=== PATIENT | male | born 2000 | race Caucasian/White ===

== ENCOUNTER 2019-04-25 05:03 | Emergency (ER) | payer MEDICAID ==
[~2019-04-25] VITALS: Ht 177.8 cm; Wt 61.2 kg
[2019-04-25 06:21] LABS: Basophils # (auto) 0 uL; Basophils % (auto) 1.2 % (0.0-2.0); Eosinophils # (auto) 0.1 uL; Eosinophils % (auto) 3.3 % (0.0-7.0); Hematocrit 49.5 % (41.0-53.0); Hemoglobin 16.8 g/dL (13.5-17.5); Lymphocytes # (auto) 1.6 uL; Lymphocytes % (auto) 42.3 % (10.0-50.0); Mean Corpuscular Hemoglobin 30.4 pg (28.0-32.0); Mean Corpuscular Volume 89.4 fL (80.0-100.0); Monocytes # (auto) 0.4 uL; Neutrophils # (auto) 1.6 uL; Neutrophils % (auto) 42.2 % (37.0-80.0); Nucleated Red Blood Cells % 0.1 %; Platelet Count (auto) 193 10^3/uL (140-450); Red Blood Cells 5.54 10^6/uL (4.5-5.90); Red Cell Distribution Width 13.3 % (11.8-14.3); White Blood Cell 3.8 10^3/uL (4.4-10.8)
[2019-04-25 06:42] LABS: Albumin 4.5 g/dL (3.4-5.0); Anion Gap 7 (5-15); Blood Urea Nitrogen 11 mg/dL (7-18); Calcium 8.7 mg/dL (8.5-10.1); Carbon Dioxide 26 mmol/L (21-32); Chloride 107 mmol/L (98-107); Glucose 95 mg/dL (74-106); Potassium 3.9 mmol/L (3.5-5.1); Sodium 140 mmol/L (136-145)
[2019-04-25 06:45] LABS: Alanine Aminotransferase 59 U/L (16-61); BUN/Creatinine Ratio 11.7; GFR African American 130 mL/min; GFR Non-African American 108 mL/min
[2019-04-25 06:50] LABS: Alkaline Phosphatase 100 U/L (45-117); Aspartate Aminotransferase 18 U/L (15-37); Bilirubin, Total 1.4 mg/dL (0.2-1.0); Total Protein 7.7 g/dL (6.4-8.2)
[2019-04-25 07:43] VITALS: BP 120/62
== END 2019-04-25 08:01 | disposition home or self-care (01) ==
LOC: ER 05:03
DX: R07.89 Other chest pain (principal); F12.10 Cannabis abuse, uncomplicated
CPT/HCPCS: 36415; 71046; 80053; 84484; 85025; 85379; 93005; 94761; 99284; J7030

== ENCOUNTER 2024-07-29 18:16 | Emergency (ER) | payer SELFPAY ==
[~2024-07-29] VITALS: Ht 177.8 cm; Wt 81.1 kg
--- NOTE | 2024-07-29 19:41 | DVH ---
Exam: Right shoulder radiograph INDICATION: RIGHT SHOULDER PAIN Technique: 3 views were obtained of the right shoulder. COMPARISON: None FINDINGS: Normal mineralization and alignment. Joint spaces are preserved. No acute fracture. Visualized right lung is clear. Overlying soft tissues are intact IMPRESSION: No acute fracture or dislocation of the right shoulder.
[2024-07-29] MEDS ORDERED: IBUP-1456 PO (21:51)
--- NOTE | 2024-07-29 21:51 | ED.PDOC ---
Musculoskeletal HPI Comments 24-YEAR-OLD MALE PRESENTS TO ER WITH COMPLAINTS OF RIGHT SHOULDER PAIN X1 DAY. PATIENT REPORTS HE STARTED EXPERIENCING RIGHT SHOULDER PAIN AT 4:30 P.M. TODAY WHILE HE WAS WRESTLING WITH HIS BROTHER. DENIES ANY TRAUMA/FALLS. HE RATES HIS CURRENT PAIN A 10/10 TO RIGHT SHOULDER WITHOUT RADIATION. DENIES USE OF MEDICATIONS FOR CURRENT SYMPTOMS. DENIES HEAD INJURY/LOC, NECK PAIN, NUMBNESS/TINGLING, SHORTNESS OF BREATH, CHEST PAIN OR ANY FURTHER SYMPTOMS/COMPLAINTS Chief Complaint: Upper Extremity Time Seen by MD: 18:19 Primary Care Provider: GABBYIES Reviewed Notes: Nurses Notes, Medications, Allergies Allergies: Coded Allergies: NO KNOWN ALLERGIES (Unverified , 04/25/19) Home Meds Active Scripts Ibuprofen (Ibuprofen) 800 Mg Tab, 1 TAB PO TID PRN, #30 TAB 0 Refills Prov:VA BADILLO 07/29/24 Information Source: Patient Mode of Arrival: Ambulatory Past Medical History PAST MEDICAL HISTORY: Denies Surgical History: Denies all surgeries Family History Family History: Unknown Social History Smoker: Non-Smoker Alcohol: Denies ETOH Use Drugs: Marijuana Lives In: Home Constitutional: denies: chills, diaphoresis, fatigue, fever, malaise, sweats, weakness, others EENTM: denies: blurred vision, double vision, ear bleeding, ear discharge, ear drainage, ear pain, ear ringing, eye pain, eye redness, hearing loss, mouth pain, mouth swelling, nasal discharge, nose bleeding, nose congestion, nose pain, photophobia, tearing, throat pain, throat swelling, voice changes, others Respiratory: denies: cough, hemoptysis, orthopnea, SOB at rest, shortness of breath, SOB with excertion, stridor, wheezing, others Cardiovascular: denies: chest pain, dizzy spells, diaphoresis, Dyspnea on exertion, edema, irregular heart beat, left arm pain, lightheadedness, palpitations, PND, syncope, others Gastrointestinal: denies: abdomen distended, abdominal pain, blood streaked bowels, constipated, diarrhea, dysphagia, difficulty swallowing, hematemesis, melena, nausea, poor appetite, poor fluid intake, rectal bleeding, rectal pain, vomiting, others Genitourinary: denies: burning, dysuria, flank pain, frequency, hematuria, incontinence, penile discharge, penile sore, pain, testicle pain, testicle swelling, urgency, others Neurological: denies: dizziness, fainting, headache, left sided numbness, left sided weakness, numbness, paresthesia, pre-existing deficit, right sided numbness, right sided weakness, seizure, speech problems, tingling, tremors, weakness, others Musculoskeletal: reports: others (As stated in HPI) Integumetry: denies: bruises, change in color, change in hair/nails, dryness, laceration, lesions, lumps, rash, wounds, others Allergic/Immunocompromised: denies: Difficulty Healing, Frequent Infections, Hives, Itching, others Hematologic/Lymphatic: denies: anemia, blood clots, easy bleeding, easy bruising, swollen glands, others Endocrine: denies: excessive hunger, excessive sweating, excessive thirst, excessive urination, flushing, intolerance to cold, intolerance to heat, unexplained weight gain, unexplained weight loss, others Psychiatric: denies: anxiety, bipolar disorder, depression, hopeless, panic disorder, schizophrenia, sleepless, suicidal, others Physical Exam General Appearance: No Apparent Distress HEENT: PERRL/EOMI Neck: Full Range of Motion, Non-Tender, Normal Respiratory: Chest Non-Tender, Lungs Clear, No Accessory Muscle Use, No Respiratory Distress, Normal Breath Sounds Cardiovascular: No Murmur, No Gallop, Regular Rate/Rhythm Breast Exam: Deferred Gastrointestinal: NOT DONE Genitalia: Deferred Pelvic: Deferred Rectal: Deferred Extremities: Normal capillary refill Musculoskeletal : Extremity Location: Shoulder (TTP to right GH joint noted. Positive Apley's scratch test right shoulder. No deformity/skin changes noted. No other TTP to right arm noted. Pulses intact) Neurologic: Alert, human services worker II-XII nml as Tested, No Motor Deficits, Normal Affect, Normal Mood, No Sensory Deficits Cerebellar Function: Normal Reflexes: Normal Skin: Dry, Normal Color, Warm Peripheral Pulses: 2+ Radial (R), 2+ Radial (L), 2+ Brachial (R), 2+ Brachial (L) Lymphatic: No Adenopathy Was a procedure done? Was a procedure done?: No Sedation Sedation?: No Differential Diagnosis EXT Differential Diagnosis: Fracture, Dislocation, Neurovascular injury X-Ray, Labs, Meds, VS Vital Signs Date Time Temp Pulse Resp B/P (MAP) Pulse Ox O2 Delivery O2 Flow Rate FiO2 07/29/24 18:49 98.3 87 16 129/72 (33) 97 PATIENT: JUAN JOSE FERGUSON AACCT: [id number]: [id number] : 2000 LOC: ER ROOM / BED: / AGE / SEX: 24 / M ADM STATUS: REG ER SERVICE 48 ORDERING PHYSICIAN: VA BADILLO PROCEDURE(s): RSHD2 - R SHOULDER 2+ VIEW XRAY REASON: RIGHT SHOULDER PAIN ORDER NUMBER(s): [id number], ACCESSION NUMBER(s): [id number] Exam: Right shoulder radiograph INDICATION: RIGHT SHOULDER PAIN Technique: 3 views were obtained of the right shoulder. COMPARISON: None FINDINGS: Normal mineralization and alignment. Joint spaces are preserved. No acute fracture. Visualized right lung is clear. Overlying soft tissues are intact IMPRESSION: No acute fracture or dislocation of the right shoulder. ATED BY: HORTENSIA WOOD MD DICTATED DATE/TIME: 07/29/241938 SIGNED BY: HORTENSIA WOOD MD SIGNED DATE/TIME: 07/29/241938 CC: Right shoulder x-ray reviewed Patient neurovascularly intact Right arm sling applied Advised on rest/no strenuous activity, elevation and alternate ice on/off as needed for pain Advised to follow up with PCP and orthopedics in 1-2 days Patient verbalized understanding and agreeable with current plan of care Advised to return to ER immediately if symptoms worsen Images Reviewed?: Images reviewed and evaluated by me Time of 1ST Reevaluation: 21:02 Reevaluation 1ST: N/A Patient Education/Counseling: Diagnosis, Treatment, Prognosis, Need For Follow Up Family Education/Counseling: No Family Present Departure 1 Departure Time of Disposition: 21:44 Impression: Primary Impression: Right shoulder strain Qualified Codes: S46.911A - Strain of unspecified muscle, fascia and tendon at shoulder and upper arm level, right arm, initial encounter Disposition: HOME / SELF CARE / HOMELESS Condition: Stable e-Prescriptions Ibuprofen (Ibuprofen) 800 Mg Tab 1 TAB PO TID PRN, #30 TAB 0 Refills Prov: VA BADILLO 07/29/24 Discharged With: Friend Critical Care Note Critical Care Time?: No Stability Stability form required: No Heart Score Heart Score: Heart Score Response (Comments) Value History N/A 0 EKG N/A 0 Age N/A 0 Risk Factors N/A 0 Troponin N/A 0 Total 0 VA BADILLO Jul 29, 2024 21:51
[2024-07-29 23:42] VITALS: BP 130/62; PULSE 63; RESP 19; TEMP 98.1; O2SAT 99
== END 2024-07-30 01:15 | disposition home or self-care (01) ==
LOC: ER 18:16
DX: S46.811A Strain of other muscles, fascia and tendons at shoulder and upper arm level, right arm, initial encounter (principal); X58.XXXA Exposure to other specified factors, initial encounter; Y93.72 Activity, wrestling; Y92.89 Other specified places as the place of occurrence of the external cause; Y99.8 Other external cause status
CPT/HCPCS: 73030